=== PATIENT | male | born 1965 | race Caucasian/White ===

== ENCOUNTER 2016-12-08 02:29 | Emergency (ER) | payer OTHER ==
[~2016-12-08] VITALS: Ht 182.9 cm; Wt 127.5 kg
[2016-12-08 02:36] VITALS: TEMP 37.2; Ht 182.9 cm; Wt 127.5 kg
[2016-12-08] MEDS ORDERED: XYLOCAINE 1%/SOD BICARB 20 ML VIAL INFIL ONE (03:00)
[2016-12-08 03:34] LABS: BASO % 0.5 %; BASO ABS # 0.05 K/uL (0-0.2); COMPLETE YES; EOS % 1.8 %; HEMATOCRIT 43.2 % (42-52); IG% 0.3 %; LYMPH % 24.5 %; MEAN CELL VOLUME 87.4 fL (80-100); MEAN CORPUSCULAR HEMOGLOBIN 30.8 pg (25-34); MEAN CORPUSCULAR HGB CONC 35.2 g/dl (32-36); MEAN PLATELET VOLUME 10.5 fL (7.4-10.4); MONO % 14.6 %; NEUT % 58.3 %; PLATELET COUNT 219 K/uL (130-400); RED BLOOD COUNT 4.94 M/uL (4.7-6.1)
[2016-12-08 03:52] LABS: BUN/CREATININE RATIO 16.3 (10-20); CALCIUM 8.8 mg/dl (8.5-10.1); CREATININE 1.1 mg/dl (0.60-1.40); POTASSIUM 3.8 mmol/L (3.5-5.1)
[2016-12-08 03:59] LABS: C-REACTIVE PROTEIN 0.77 mg/dl (0-0.29)
[2016-12-08 04:22] LABS: LYME DISEASE AB IGG NEG (NEG); LYME DISEASE AB IGM NEG (NEG)
--- NOTE | 2016-12-08 05:05 | EMERGENCY ROOM VISIT NOTE ---
History First contact with patient: 02:43 Chief Complaint: KNEEPAIN Stated Complaint: KNEE PAIN History of Present Illness The patient is a 51 year old male who presents to the Emergency Room with complaints of left knee pain and swelling for the past day. Patient states he is doing softball today but does not refer injuring it. Patient states he was sitting and notices knee was swollen and painful. Patient states he has had a lump to the back of his knee for many years. He has a history of lipomas. He describes the pain as throbbing, ranging in severity 3 out of 10 worse with movement and better with rest. No history DVT or PE. Patient denies chest pain , dyspnea, fever, chills, numbness, tingling, felt pain, ankle pain, de [place] rosa pain, calf pain, thigh pain, hip pain. No other medical complaints. No prior history of injuries to this knee. Review of Systems See HPI for pertinent positives & negatives. A total of 10 systems reviewed and were otherwise negative. Past Medical/Surgical History none Social History Smoking Status: Never Smoker Smokeless Tobacco Use: No Drug Use: none Marital Status: Housing Status: lives with family Current/Historical Medications No Active Prescriptions or Reported Meds Physical Exam Vital Signs Date Time Temp Pulse Resp B/P (MAP) Pulse Ox O2 Delivery O2 Flow Rate FiO2 12/08/16 04:20 73 18 114/71 97 Room Air 12/08/16 02:36 37.2 91 18 133/92 94 Room Air Physical Exam VITALS: Vitals are noted on the nurse's note and reviewed by myself. Vital signs stable. GENERAL: Pleasant male, in no acute distress, nondiaphoretic, well-developed well-nourished. SKIN: Capillary reflex less than 2 seconds. HEENT: Normocephalic. PERRLA. EOMI. Nares patent. Mucous membranes moist. Neck is supple without nuchal rigidity. HEART: Regular rate and rhythm without murmurs gallops or rubs. LUNGS: Clear to auscultation bilaterally without wheezes, rales or rhonchi. No retractions or accessory muscle use. ABDOMEN: Positive bowel sounds x 4. Normal tympanic percussion. Soft, nontender, without masses or organomegaly. Mcarthur sign negative. No guarding or rebound tenderness. MUSCULOSKELETAL: No gross musculoskeletal defects. No pedal edema. No calf tenderness.The left knee is swollen. There is joint effusion present. There are no previous scars to the knee. There is no varus or valgus deformity. The patient is tender minimally. There is no joint line tenderness. The patella not subluxate. Range of motion is not limited by tenderness. Strength of the quads and hamstrings is 5/5. Rebeca's and Anterior Drawer tests are negative . There is no laxity with varus and valgus stressing. NEURO: Patient was alert and oriented to person place and time. Normal sensation to light and sharp touch. No focal neurological deficits. Medical Decision & Procedures Laboratory Results 12/08/16 03:18 Red Blood Count 4.94, Mean Corpuscular Volume 87.4, Mean Corpuscular Hemoglobin 30.8, Mean Corpuscular Hemoglobin Concent 35.2, Mean Platelet Volume 10.5, Neutrophils (%) (Auto) 58.3, Lymphocytes (%) (Auto) 24.5, Monocytes (%) (Auto) 14.6, Eosinophils (%) (Auto) 1.8, Basophils (%) (Auto) 0.5, Neutrophils # (Auto ) 6.18, Lymphocytes # (Auto) 2.60, Monocytes # (Auto) 1.55, Eosinophils # (Auto ) 0.19, Basophils # (Auto) 0.05 12/08/16 03:18 Test 12/08/16 03:18 White Blood Count 10.60 K/uL (4.8-10.8) Red Blood Count 4.94 M/uL (4.7-6.1) Hemoglobin 15.2 g/dL (14.0-18.0) Hematocrit 43.2 % (42-52) Mean Corpuscular Volume 87.4 fL (80-100) Mean Corpuscular Hemoglobin 30.8 pg (25-34) Mean Corpuscular Hemoglobin Concent 35.2 g/dl (32-36) Platelet Count 219 K/uL (130-400) Mean Platelet Volume 10.5 fL (7.4-10.4) Neutrophils (%) (Auto) 58.3 % Lymphocytes (%) (Auto) 24.5 % Monocytes (%) (Auto) 14.6 % Eosinophils (%) (Auto) 1.8 % Basophils (%) (Auto) 0.5 % Neutrophils # (Auto) 6.18 K/uL (1.4-6.5) Lymphocytes # (Auto) 2.60 K/uL (1.2-3.4) Monocytes # (Auto) 1.55 K/uL (0.11-0.59) Eosinophils # (Auto) 0.19 K/uL (0-0.5) Basophils # (Auto) 0.05 K/uL (0-0.2) RDW Standard Deviation 41.3 fL (36.4-46.3) RDW Coefficient of Variation 12.8 % (11.5-14.5) Immature Granulocyte % (Auto) 0.3 % Immature Granulocyte # (Auto) 0.03 K/uL (0.00-0.02) Erythrocyte Sedimentation Rate 2 mm/hr (0-14) Anion Gap 4.0 mmol/L (3-11) Est Creatinine Clear Calc Drug Dose 108.4 ml/min Estimated GFR () 89.0 Estimated GFR (Non- 76.8 BUN/Creatinine Ratio 16.3 (10-20) Calcium Level 8.8 mg/dl (8.5-10.1) C-Reactive Protein 0.77 mg/dl (0-0.29) Lyme Disease IgG Antibody NEG (NEG) Lyme Disease IgM Antibody NEG (NEG) Procedure Joint aspiration Indication: Joint effusion Location: Knee Verbal consent was obtained after the risks and benefits were explained, including but not limited to bleeding, scarring, infection, pain, and bone/joint /nerve damage. At this time, the risks of the procedure are less than the risks of NOT performing the procedure. A time out was taken and the correct patient and site identified. The skin was prepped with betadine and a sterile field set. The wound was anesthetized with 2 ml of 1% lidocaine without epinephrine. The joint space of the knee was entered with a 18-gauge needle and gross bloody fluid was withdrawn. This is concerning for a meniscal injury. Bacitracin and sterile dressing applied. Detailed wound care instructions and signs and symptoms of worsening infection reviewed with the patient. Primitivo wrap was applied. No complications and the patient tolerated the procedure well. ED Course Prior records reviewed and summarized above. Triage Nursing notes reviewed. Additional history obtained from the family. The patient's history was concerning for swelling and pain in the leg. Differential diagnosis: Etiologies such as Lymes, DVT, musculoskeletal, infection, joint effusion, trauma, lymphedema, idiopathic, CHF, as well as others were entertained.. Physical examination: The physical examination revealed no signs of infection. Neurovascularly intact. ER treatment provided: Primitivo wrap, crutches On reassessment the patient felt better. Diagnostics interpreted by me: The labs revealed stable H&H. Negative Lyme's Imaging studies: The x-ray shows joint effusion and calcified lipoma versus cyst per my interpretation. Ultrasound negative for DVT. Fluid collection in the popliteal fossa possibly a popliteal cyst per stat rad This appears to be consistent with joint effusion that is grossly bloody by joint aspiration concerning for meniscal injury. Patient had a stable H&H. No fracture on x-ray. Negative DVT. He is placed in Primitivo wrap and neurovascular status was checked after placement and is intact. He was instructed on the sick crutches. Is advised follow-up with orthopedics for his injury or here in the ER sooner for severe pain, numbness, tingling, worsening signs or symptoms or as needed. By the evaluation outlined above emergent etiologies such as DVT , septic joint,infection, CHF, as well as others were deemed relatively unlikely. The pt informed about the findings as listed above. All questions were answered and pleased with the treatment. Return instructions were outlined and the patient was discharged in stable condition. Referral: The patient was referred to orthopedics for follow-up in 2 to 3 days for a recheck of the current condition. Case reviewed with my attending Medical Decision As above Medication Reconcilliation Current Medication List: was personally reviewed by me Blood Pressure Screening Patient's blood pressure: Normal blood pressure Impression Primary Impression: Hemarthrosis, left knee Additional Impression: Effusion, left knee Departure Information Dispostion Home / Self-Care Condition GOOD Prescriptions No Active Prescriptions or Reported Meds Referrals Shailesh Baez D.O. Forms HOME CARE DOCUMENTATION FORM, Work Instructions, Return To Work: 2 days IMPORTANT VISIT INFORMATION Patient Instructions My [facility], ED Meniscal Injury Knee Poss Additional Instructions Ibuprofen(Motrin, Advil) may be used for fever or pain. Use 600mg every six hours as needed. Take with food. Avoid using more than 2400mg in a 24 hour period. Do not use 2400mg per day for more than three consecutive days without physician direction. Prolonged inappropriate use can lead to stomach upset or ulcers. This medication can be taken if you need to drive, work, or perform activities which may be dangerous when taking narcotic pain medication. (AND/OR) Acetaminophen(Tylenol) may be used for fever or pain. Use 1000mg every six hours as needed. Avoid using more than 3000mg in a 24 hour period. This medication can be taken if you need to drive, work, or perform activities which may be dangerous when taking narcotic pain medication. Ice compresses for 20 minutes at a time four times daily for 2-3 days. Use the crutches as instructed. Rest and elevate your injury. Wear knee Priimtivo wrap for compression for the next week. Do not have it so tight that you cannot feel your foot. Continue current medications. Return to the ER immediately for any numbness, tingling, severe pain, extreme swelling in the extremity or as needed. Call Orthopedics tomorrow to arrange follow up for your injury. Work Instructions Return To Work: 2 days Problem Qualifiers
[2016-12-08 05:15] VITALS: BP 120/71; PULSE 62; O2SAT 98
--- NOTE | 2016-12-08 05:54 | DIAGNOSTIC IMAGING REPORT ---
LEFT VENOUS DOPP LOWER EXT UNILAT CLINICAL HISTORY: left leg swelling pain. Edema. TECHNIQUE: Venous Doppler COMPARISON STUDY: None FINDINGS: No evidence of deep venous thrombosis. 4 cm complex popliteal cyst IMPRESSION: No evidence for acute deep venous tendinosis. 4 cm complex popliteal cyst. The above report was generated using voice recognition software. It may contain grammatical, syntax or spelling errors. Electronically signed by: Vincent Mnoge M.D. 12/08/2016 5:53 AM Dictated Date/Time: 12/08/2016 5:52 AM
--- NOTE | 2016-12-08 05:56 | DIAGNOSTIC IMAGING REPORT ---
LEFT KNEE 3 VIEWS CLINICAL HISTORY: left knee swelling pain. Edema. COMPARISON: None. DISCUSSION: Small joint effusion. No evidence for acute bony abnormality. Minimal degenerative change all major joint compartments. There is no evidence for soft tissue swelling. IMPRESSION: Small joint effusion. Minimal degenerative change. No acute bony abnormality. The above report was generated using voice recognition software. It may contain grammatical, syntax or spelling errors. Electronically signed by: Vincent Monge M.D. 12/08/2016 5:54 AM Dictated Date/Time: 12/08/2016 5:54 AM
== END 2016-12-08 05:18 | disposition home or self-care (01) ==
LOC: C.EDB 02:31
DX: M25.062 Hemarthrosis, left knee (principal); M25.462 Effusion, left knee